=== PATIENT | male | born 1990 | race Caucasian/White ===

== ENCOUNTER 2018-08-08 13:48 | Emergency (ER) | payer SELFPAY ==
[~2018-08-08] VITALS: Ht 190.5 cm; Wt 89.1 kg
[2018-08-08 13:51] VITALS: Ht 190.5 cm; Wt 89.1 kg
[2018-08-08] MEDS ORDERED: EPIPEN 2-P0.3 MG/0.3 IM (13:52)
[2018-08-08] MEDS ORDERED: IBUPROFEN800 MG PO (15:50)
[2018-08-08 16:13] VITALS: BP 149/70
== END 2018-08-08 16:12 | disposition home or self-care (01) ==
LOC: D.ER 13:48
DX: R55 Syncope and collapse (principal); T78.1XXA Other adverse food reactions, not elsewhere classified, initial encounter